=== PATIENT | female | born 1970 | race African-American/Black ===

== ENCOUNTER 2019-10-10 06:27 | Observation (INO) | payer MEDICARE, MEDICAID ==
[2019-10-10] MEDS ORDERED: Acetaminophen/Codeine 30-300mg Tablet ONE (07:37)
[2019-10-10 08:11] LABS: Anion Gap 13 mmol/L (10-20); BUN (Urea Nitrogen) 14 mg/dL (7.0-18.7); Calc. Creatinine Clearance 0 mL/min (70-130); Carbon Dioxide 22 mmol/L (22-29); Chloride 111 mmol/L (98-107); Potassium 3.5 mmol/L (3.5-5.1); Sodium 142 mmol/L (136-145)
[2019-10-10 08:12] LABS: ALT (SGPT) 17 U/L (8-55); AST (SGOT) 22 U/L (5-34); Alkaline Phosphatase 131 U/L (40-110); Bilirubin, Total 0.2 mg/dL (0.2-1.2); Calcium 9.3 mg/dL (7.8-10.44); Estimated GFR-MDRD 88; Globulin 2.9 g/dL (2.4-3.5); Glucose 99 mg/dL (70-105); Protein, Total 6.9 g/dL (6.0-8.3)
[2019-10-10 08:30] LABS: CKMB 3.7 ng/mL (0-6.6)
[2019-10-10 08:31] LABS: #Eosinphils 0.3 thou/uL (0.0-0.7); #Lymphocytes 3.7 thou/uL (1.20-3.40); #Monocytes 0.7 thou/uL (0.11-0.59); #Neutrophils 6.3 thou/uL (1.40-6.50); %Basophils 0.2 % (0.0-1.0); %Eosinophils 2.5 % (0.0-10.0); %Lymphocytes 33.7 % (21.0-51.0); %Monocytes 6.1 % (0.0-10.0); %Neutrophils 57.5 % (42.0-75.0); Hemoglobin 11.8 g/dL (12.0-16.0); Mean Corpuscular HGB CONC 31.9 g/dL (32.0-36.0); Mean Corpuscular Hemoglobin 24.7 pg (27.0-31.0); Mean Corpuscular Volume 77.4 fL (78.0-98.0); Mean Platelet Volume 9.4 fL (7.4-10.4); Platelet Count 251 thou/uL (130-400); RBC Distribution Width 14.6 % (11.5-14.5); Red Blood Cell (RBC) Count 4.78 mill/uL (4.20-5.40); White Blood Cell (WBC) Count 10.9 thou/uL (4.8-10.8)
--- NOTE | 2019-10-10 09:11 | RAD ---
CHEST 1 VIEW: INDICATION: History of chest pain. COMPARISON: Prior exam dated 05/01/2011. FINDINGS: There is mild cardiomegaly and pulmonary vascular congestion. There is a single-lead AICD overlying the left chest wall. No pleural effusion or pneumothorax is evident. No acute osseous abnormality i s evident. IMPRESSION: Mild cardiomegaly with pulmonary vascular congestion. POS: BH
[2019-10-10 12:00] LABS: Troponin I 0.051 ng/mL (< 0.028)
[2019-10-10] MEDS ORDERED: Ondansetron PF 4 MG/2 ML Vial IVP PRN (13:14)
[2019-10-10] MEDS ORDERED: Ondansetron ODT 4 MG TAB SL PRN (13:14)
[2019-10-10] MEDS ORDERED: Acetaminophen 325 MG TAB PO PRN ×2 (13:14→13:37)
[2019-10-10 13:24] VITALS: BMI 39.2
[2019-10-10] MEDS ORDERED: Senokot S 8.6-50 MG TAB PO PRN (13:37)
[2019-10-10 14:09] LABS: Troponin I 0.028 ng/mL (< 0.028)
[2019-10-10 14:38] LABS: Reticulocyte Count 1.5 % (0.5-1.5)
[2019-10-10 15:23] LABS: Ferritin 26.62 ng/mL (10-291); Thyroid Stimulating Hormone 0.6027 uIU/mL (0.35-4.94)
--- NOTE | 2019-10-10 21:06 | HP ---
CHIEF COMPLAINT: Chest pain. HISTORY OF PRESENT ILLNESS: The patient is a 49-year-old female with a history of, which appears to be systolic heart failure, currently compensated, stroke, hypertension, and obesity, who presents to the hospital with chest pain x2 weeks. The patient normally gets her care in [place] and she has been having ongoing chest pain for the past 2 weeks. However, today it got worse, so she came into the ER for further evaluation. The patient states that she had a cardiac cath about a few years ago and had 2 stents placed and also she has had a stroke about 5 years ago. The patient cannot recall if she had a stress test or a cardiac cath this year. The patient describes her chest pain as a burning, stabbing chest pain that is similar to her previous heart attack. She also states that occasionally she does get some shortness of breath on exertion. She also has been using her cane on ambulation. However, denies any fevers, chills, nausea, vomiting, or diarrhea. The patient also has been complaining of some cough, which has been going on for the past couple of weeks. She denies any fevers or chills and denies any sick contacts. PAST MEDICAL HISTORY: She has had CAD x2 stents, hypertension. She has a history of hyperlipidemia, stroke and obesity. PAST SURGICAL HISTORY: She has had a hysterectomy, left knee surgery. FAMILY HISTORY: Dad had history of strokes and hypertension. SOCIAL HISTORY: She is a former 1 pack a week smoking, occasional alcohol use and sometimes marijuana use. Denies any other recreational drug use and she is a full code. Lives with her family. ALLERGIES: SHE IS ALLERGIC TO TORADOL, MORPHINE, PENICILLIN, AND BENADRYL. HOME MEDICATIONS: As of the following. She takes, 1. Aspirin 81 mg daily. 2. Isosorbide, unknown dose. 3. Entresto, unknown dose. 4. Atorvastatin. REVIEW OF SYSTEMS: All negative except for the ones mentioned above in the HPI. PHYSICAL EXAMINATION: VITAL SIGNS: As of the following; temperature 98.0, pulse 96, respiratory rate 22, O2 saturation 99% on room air, and blood pressure 133/71. GENERAL: She is awake, alert, and oriented x3. Does not appear in distress. CV: S1, S2 present. No murmurs, rubs, or gallops. LUNGS: Clear to auscultation. No rhonchi or wheezes noted. ABDOMEN: Obese. Bowel sounds are present x2. Mild pain upon palpation around the epigastric area. EXTREMITIES: No edema. Pedal pulses are present x2. Neurovascular faria, she does have some weakness to her left upper extremity, which is not new. She has had that from her previous stroke. SKIN: No cuts, lesions, or bruises noted. LABORATORY RESULTS: WBCs of 10.9, hemoglobin of 11.8, hematocrit of 37.0, platelets of 251. Her MCV 77.4, reticulocyte count is 1.5. Chemistry; sodium 142, potassium of 3.5, BUN of 14, creatinine of 0.83. Her troponins x2 was 0.044 and 0.051. Her EKG did not have any acute significant changes. ASSESSMENT AND PLAN: The patient is a very pleasant 49-year-old female, who presents to the hospital with complaints of chest pain. 1. Chest pain. Given the patient's history of coronary artery disease, we will need to rule out cardiac causes. We will trend her troponins. I do not have any previous records. 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 The patient did state that her initially echocardiogram was 20%. However, after being on Entresto, she is now 30% to 35%. We will check a BNP and also TSH and again as I mentioned, Cardiology consult to decide if we should go ahead and do a stress test versus cardiac cath. However, in this patient if she has had a cardiac cath recently, there will be no need for further workup. However, again the patient is very unclear. 2. Hypertension. We will continue her home medications. 3. Coronary artery disease. We will continue her aspirin and statin. 4. Deep venous thrombosis prophylaxis. We will put the patient on enoxaparin. 5. Iron deficiency anemia. We will start her on some oral iron. Job ID: [id number]
[2019-10-10] MEDS ORDERED: HYDROcodone/Acetaminophen 5/325 mg Tablet PO PRN (21:17)
[2019-10-10] MEDS ORDERED: Mirtazapine 30 MG TAB PO SCH (21:45)
[2019-10-10] MEDS: HYDROcodone/Acetaminophen 5/325 mg Tablet PO PRN (22:15)
[2019-10-10] MEDS ORDERED: Meclizine HCl 25 MG TAB PO SCH (23:30)
[2019-10-11] MEDS ORDERED: Guaifenesin DM 100-10/5 ML UDCUP PO PRN (00:11)
--- NOTE | 2019-10-11 00:41 | CON ---
DATE OF CONSULTATION: HISTORY OF PRESENT ILLNESS: Karyn Urrutia is a 49-year-old black female, who presented to the emergency room complaining of cough and chest pain. Approximately 4 years ago, she states she had a myocardial infarction in [place] and underwent heart catheterization, but does not think that she had any stents placed. Then 6 months later, she stated that she had stents placed. Also, she was having chest pain earlier this year and underwent heart catheterization at [facility] in [facility]. She is uncertain of the finding of that heart catheterization. She also has had ejection fraction as low as 15% and was on carvedilol at that time. She states that was stopped and states she was placed on Entresto and her ejection fraction has improved to 35%. Two years ago, she also had a single-chamber defibrillator placed-[employer]. Over the last 2 weeks, she has had increased shortness of breath as well as cough. She has developed burning in her chest that may last up to 15 minutes. Sometimes this pain is made better, if she rubs the area. The pain is not pleuritic in nature and does not necessarily seem to be related to coughing. At times, she will cough up yellow sputum. She did smoke 3 to 4 cigarettes per day, but states that she stopped a year ago. PAST MEDICAL HISTORY: Coronary artery disease, congestive heart failure, GERD, asthma. She denies any history of diabetes, hypertension, or hypercholesterolemia. She has had a stroke with left-sided weakness. PAST SURGICAL HISTORY: Include single-chamber defibrillator, two cardiac stent placements, hysterectomy, left total knee replacement, and cholecystectomy. MEDICATIONS: 1. Aspirin 81 daily. 2. Furosemide 40 b.i.d. 3. Isosorbide mononitrate 30 daily. 4. Meclizine 25 q.i.d. 5. Mirtazapine 30 mg at bedtime. 6. Ranitidine 300 mg at bedtime. 7. Entresto 24/26 b.i.d. ALLERGIES: MORPHINE, PENICILLIN, TORADOL. SOCIAL HISTORY: She smoked 3-4 cigarettes per day, but stopped a year ago. She smokes marijuana. REVIEW OF SYSTEMS: A 10-point review of systems is negative except as noted above. REVIEW OF SYSTEMS: VITAL SIGNS: Blood pressure 125/58, pulse of 96. HEENT: PERRL. NECK: Supple. CHEST: Clear without wheezing or rales. CARDIOVASCULAR: S1 and S2 normal without any S3, S4, murmurs. ABDOMEN: Obese, normal bowel sounds. No tenderness. EXTREMITIES: Revealed no clubbing, cyanosis, or edema. NEUROLOGICAL: Reveals very mild left-sided weakness. LABORATORY DATA: EKG revealed normal sinus rhythm with nonspecific T-wave changes. Hemoglobin 11.8, hematocrit 37.0, white count 06023. She does have small RBC indices. Retic count is normal at 1.5. Troponin I is up to 0.051. TSH is normal. Iron is low at 46. Sodium 142, potassium 3.5, chloride 111, carbon dioxide 22, BUN 14, creatinine 0.83. BNP 35.9. IMPRESSION: 1. Chest pain, which probably is related to her cough and represents musculoskeletal chest wall pain. 2. Ayl-BG-[id number] myocardial infarction, type 2. 3. History of myocardial infarction 4 years ago and stent placement 6 months later. She also had cardiac catheterization earlier this year, but it is not clear exactly what was found. 4. Ischemic cardiomyopathy with ejection fraction of 15%, improved to 35% on Entresto. 5. Unknown cholesterol status. 6. Former smoker. 7. History of cerebrovascular accident. PLAN: Records have been requested from [facility] in [place] regarding her most recent cardiac catheterization. Echocardiogram will be performed to reassess left ventricular function. Her BNP is normal and she appears euvolemic. She does not appear to be in significant heart failure at this time. She does state that her breathing has improved and she has coughed less since increasing in her nebs treatment to q.i.d., she states she takes this b.i.d. at home. Job ID: [id number]
[2019-10-11 04:58] LABS: #Eosinphils 0.3 thou/uL (0.0-0.7); #Lymphocytes 3.6 thou/uL (1.20-3.40); #Monocytes 0.7 thou/uL (0.11-0.59); #Neutrophils 4.1 thou/uL (1.40-6.50); %Basophils 0.2 % (0.0-1.0); %Eosinophils 3.5 % (0.0-10.0); %Lymphocytes 41.3 % (21.0-51.0); %Monocytes 8.5 % (0.0-10.0); %Neutrophils 46.5 % (42.0-75.0); Hemoglobin 10.5 g/dL (12.0-16.0); Mean Corpuscular HGB CONC 32.1 g/dL (32.0-36.0); Mean Corpuscular Hemoglobin 24.7 pg (27.0-31.0); Mean Platelet Volume 9.2 fL (7.4-10.4); Platelet Count 239 thou/uL (130-400); RBC Distribution Width 14.6 % (11.5-14.5); Red Blood Cell (RBC) Count 4.25 mill/uL (4.20-5.40); White Blood Cell (WBC) Count 8.7 thou/uL (4.8-10.8)
[2019-10-11] MEDS: HYDROcodone/Acetaminophen 5/325 mg Tablet PO PRN ×4 (05:07→18:48)
[2019-10-11 05:17] LABS: Anion Gap 7 mmol/L (10-20); BUN (Urea Nitrogen) 14 mg/dL (7.0-18.7); Calc. Creatinine Clearance 142 mL/min (70-130); Calcium 9.1 mg/dL (7.8-10.44); Carbon Dioxide 27 mmol/L (22-29); Cardiac Risk 6.4 (Less than 4.5); Chloride 112 mmol/L (98-107); Cholesterol 186 mg/dl (< 200 Desired); Estimated GFR-MDRD Greater than 90; Glucose 106 mg/dL (70-105); HDL Cholesterol 29 mg/dL (>60 Neg Risk); LDL Cholesterol, Calculated 114 mg/dL; Potassium 3.6 mmol/L (3.5-5.1); Sodium 142 mmol/L (136-145); Triglycerides 217 mg/dL (Less than 150)
[2019-10-11] MEDS: Enoxaparin Sodium 40 MG/0.4 ML SYRINGE SC SCH (08:41)
[2019-10-11] MEDS: Meclizine HCl 25 MG TAB PO SCH ×4 (08:41→21:00)
[2019-10-11] MEDS ORDERED: Aspirin 81 mg Enteric Coated Tablet PO SCH (09:00)
[2019-10-11] MEDS ORDERED: Promethazine 25 MG TAB PO SCH (16:00)
[2019-10-11] MEDS ORDERED: Mirtazapine 30 MG TAB PO SCH (21:00)
[2019-10-11] MEDS ORDERED: Famotidine 20 MG TAB PO SCH (21:00)
[2019-10-11] MEDS: Furosemide 40 MG TAB PO SCH (21:00)
[2019-10-11] MEDS ORDERED: Rosuvastatin 20 MG TAB PO SCH (21:00)
[2019-10-11] MEDS: hydrOXYzine 10 MG TAB PO SCH (21:01)
[2019-10-12] MEDS ORDERED: Ferrous Gluconate 324 MG TAB PO SCH (08:00)
[2019-10-12] MEDS: Meclizine HCl 25 MG TAB PO SCH ×3 (08:31→18:13)
[2019-10-12] MEDS: Furosemide 40 MG TAB PO SCH (08:32)
[2019-10-12] MEDS: hydrOXYzine 10 MG TAB PO SCH (08:32)
[2019-10-12] MEDS: Enoxaparin Sodium 40 MG/0.4 ML SYRINGE SC SCH (08:32)
[2019-10-12] MEDS: HYDROcodone/Acetaminophen 5/325 mg Tablet PO PRN (08:32)
[2019-10-12] MEDS ORDERED: Aspirin 81 mg Enteric Coated Tablet PO SCH (09:00)
[2019-10-12] MEDS ORDERED: Isosorbide Mononitrate (ER) 30 MG TAB PO SCH ×2 (09:00)
--- NOTE | 2019-10-12 13:51 | PDOC.HOSPP ---
- Subjective Encounter Date: 10/12/19 Encounter Time: 08:50 Subjective: +CP - Objective Vital Signs & Weight: Vital Signs (12 hours) Temp Pulse Resp BP Pulse Ox 10/12/19 13:30 110 H 20 98 10/12/19 11:38 98.2 F 100 16 102/52 L 96 10/12/19 07:22 97.8 F 92 20 128/56 L 98 10/12/19 06:43 90 18 100 10/12/19 03:06 98.2 F 112 H 22 H 110/63 95 Weight Weight 230 lb 11.2 oz I&O: 10/11/19 10/12/19 10/13/19 06:59 06:59 06:59 Intake Total 960 980 Output Total 1250 Balance 960 -270 Result Diagrams: 10/11/19 04:36 10/11/19 04:36 Hospitalist ROS - Medication Medications: Active Medications Generic Name Dose Route Start Last Admin Trade Name Freq PRN Reason Stop Dose Admin Acetaminophen 650 mg 10/10/19 13:37 10/10/19 17:30 Tylenol PO 650 mg Q4H PRN Administration Headache/Fever/Mild Pain (1-3) Hydrocodone Bitart/Acetaminophen 1 tab 10/10/19 21:17 10/12/19 08:32 [place] 5/325 PO 1 tab Q4H PRN Administration Moderate Pain (4-6) Albuterol/Ipratropium 3 ml 10/10/19 19:00 10/12/19 13:30 Duoneb NEB 3 ml [id number] DESTINEE Administration Aspirin 81 mg 10/12/19 09:00 10/12/19 08:31 Ecotrin PO 81 mg DAILY DESTINEE Administration Enoxaparin Sodium 40 mg 10/11/19 09:00 10/12/19 08:32 Lovenox SC 40 mg 0900 DESTINEE Administration Famotidine 40 mg 10/11/19 21:00 10/11/19 21:01 Pepcid PO 40 mg HS DESTINEE Administration Ferrous Gluconate 324 mg 10/12/19 08:00 10/12/19 08:31 Fergon PO 324 mg QAM-WM DESTINEE Administration Furosemide 40 mg 10/11/19 21:00 10/12/19 08:32 Lasix PO 40 mg BID DESTINEE Administration Guaifenesin/Dextromethorphan 15 ml 10/11/19 00:11 10/11/19 08:41 Robitussin Dm PO 15 ml Q4H PRN Administration Cough Hydroxyzine HCl 10 mg 10/11/19 21:00 10/12/19 08:32 Atarax PO 10 mg BID DESTINEE Administration Isosorbide Mononitrate 30 mg 10/12/19 09:00 10/12/19 08:32 Imdur Er PO 30 mg DAILY DESTINEE Administration Meclizine HCl 25 mg 10/11/19 09:00 10/12/19 08:31 Antivert PO 25 mg QID DESTINEE Administration Mirtazapine 30 mg 10/11/19 21:00 10/11/19 21:00 Remeron PO 30 mg HS DESTINEE Administration Pantoprazole Sodium 40 mg 10/11/19 09:00 10/12/19 08:32 Protonix PO 40 mg DAILY DESTINEE Administration Rosuvastatin Calcium 20 mg 10/11/19 21:00 10/11/19 21:00 Crestor PO 20 mg HS DESTINEE Administration Sacubitril/Valsartan 1 tab 10/11/19 21:00 10/12/19 08:31 Entresto 24 Mg-26 Mg Tablet PO 1 tab BID DESTINEE Administration - Exam General Appearance: NAD, awake alert Neck: no JVD Heart: RRR Respiratory: CTAB Gastrointestinal: soft Extremities: 1+ LE edema Neurological - other findings: Left hemiparesis Hosp A/P (1) Chest pain Code(s): R07.9 - CHEST PAIN, UNSPECIFIED Status: Acute (2) HTN (hypertension) Code(s): I10 - ESSENTIAL (PRIMARY) HYPERTENSION Status: Acute (3) CAD (coronary artery disease) Code(s): I25.10 - ATHSCL HEART DISEASE OF [place] CORONARY ARTERY W/O ANG PCTRS Status: Acute (4) Type 2 AMI (acute myocardial infarction) Code(s): I21.A1 - MYOCARDIAL INFARCTION TYPE 2 Status: Acute - Plan Continue current management.. Awaiting medical record from [facility] in [place].. f/u with cardiology.
--- NOTE | 2019-10-12 18:55 | DIS ---
DATE OF ADMISSION: 10/10/2019 DATE OF DISCHARGE: 10/12/2019 ADMITTING DIAGNOSIS: Chest pain. SECONDARY DIAGNOSES: 1. Hypertension. 2. Coronary artery disease. DISCHARGE DIAGNOSES: 1. Hypertension. 2. Coronary artery disease. AUDIO VISUAL DIRECTOR: Dr. Thomas Faulkner. PROCEDURES: Echocardiogram, chest x-ray. HOSPITAL COURSE: Course of hospitalization, uncomplicated. The patient is clinically stable at this time, being discharged to home as recommended by wine sales representative. PHYSICAL EXAMINATION: For today's physical examination, please report to the patient's medical record progress note section. Job ID: [id number]
[2019-10-12 19:54] VITALS: BP 146/90; TEMP 98
--- NOTE | 2019-10-13 19:30 | EKG ---
Test Reason : Blood Pressure : / mmHG Vent. Rate : 084 BPM Atrial Rate : 084 BPM P-R Int : 182 ms QRS Dur : 102 ms QT Int : 390 ms P-R-T Axes : 057 -18 071 degrees QTc Int : 460 ms Normal sinus rhythm Left ventricular hypertrophy T wave abnormality, consider lateral ischemia Prolonged QT Abnormal ECG Confirmed by ARAMIS VILLARREAL D.O. ([id number]), news copy editor SHAUNA LUJAN ([id number]) on 10/13/2019 7:29:51 PM Referred By: Confirmed By:ARAMIS VILLARREAL D.O.
== END 2019-10-12 19:50 | disposition home or self-care (01) ==
LOC: ERS 06:27 → 2SW 06:28
PROVIDERS: ADMIT Internal Medicine; ATTEND Internal Medicine
DX: R07.89 Other chest pain (principal); I25.10 Atherosclerotic heart disease of native coronary artery without angina pectoris; E78.5 Hyperlipidemia, unspecified; D50.9 Iron deficiency anemia, unspecified; I25.2 Old myocardial infarction; K21.9 Gastro-esophageal reflux disease without esophagitis; I11.0 Hypertensive heart disease with heart failure; I50.9 Heart failure, unspecified; I69.354 Hemiplegia and hemiparesis following cerebral infarction affecting left non-dominant side; I25.5 Ischemic cardiomyopathy; E78.00 Pure hypercholesterolemia, unspecified; F12.10 Cannabis abuse, uncomplicated; E66.9 Obesity, unspecified; Z68.39 Body mass index [BMI] 39.0-39.9, adult; Z87.891 Personal history of nicotine dependence; Z79.82 Long term (current) use of aspirin; Z79.899 Other long term (current) drug therapy; Z88.0 Allergy status to penicillin; Z88.5 Allergy status to narcotic agent; Z88.8 Allergy status to other drugs, medicaments and biological substances; Z95.5 Presence of coronary angioplasty implant and graft
CPT/HCPCS: 71045; 80048; 80061; 82553; 82728; 83540; 83880; 84484 ×2; 85025; 85046; 87633; 87798 ×2; 87804 ×2; 93005; 93306; 94640 ×3; 96372 ×2; 99285; G0378 ×4; 36415; 36416; 80053; 84443; J1650; J7620; J8597; Q0169